=== PATIENT | female | born 1965 | race African-American/Black ===

== ENCOUNTER 2022-09-26 09:24 | Outpatient (CLI) | payer OTHER ==
[2022-09-26] MEDS ORDERED: Lidocaine 1% PF 5 ML VIAL ONE (09:39)
[2022-09-26] MEDS ORDERED: Sodium Bicarbonate 2.5 MEQ/5 ML VIAL ONE (09:40)
[2022-09-26 10:01] VITALS: BP 157/79; TEMP 98.1
[2022-09-26] MEDS ORDERED: FLU VACC QS2022-23(6MOS UP)/PF 60 MCG/0.5 ML SYRINGE IM ONE (10:15)
[2022-09-26] MEDS ORDERED: Iopamidol-M 300 61% 15 ML VIAL ONE (13:57)
== END 2022-09-26 09:25 | disposition home or self-care (01) ==
LOC: CSHRAD 09:24
PROVIDERS: ATTEND Nurse Practitioner Family
DX: M54.12 Radiculopathy, cervical region (principal); Z98.1 Arthrodesis status; M50.022 Cervical disc disorder at C5-C6 level with myelopathy; M47.12 Other spondylosis with myelopathy, cervical region
CPT/HCPCS: 62302; 72126